=== PATIENT | female | born 1980 | race Caucasian/White ===

== ENCOUNTER 2020-04-17 16:08 | Emergency (ER) | payer BC ==
[2020-04-17 18:15] LABS: RED BLOOD COUNT 4.67 M/UL (4.00-5.10); WHITE BLOOD COUNT 9.6 K/UL (4.5-11.0)
[2020-04-17 18:35] LABS: BUN/CREATININE RATIO 9 (0-10)
[2020-04-17] MEDS ORDERED: FLOMAX 0.4 MG0.4 MG PO (19:31)
[2020-04-17] MEDS ORDERED: TORADOL 10 MG T10 MG PO (19:31)
[2020-04-17] MEDS ORDERED: ZOFRAN ODT 4 MG4 MG SL (19:31)
[2020-04-17] MEDS ORDERED: HYDROCODON-ACE1 EAC4 PO (19:31)
== END 2020-04-17 19:55 | disposition home or self-care (01) ==
LOC: ER1 16:08
PROVIDERS: Emergency Medicine
DX: N13.2 Hydronephrosis with renal and ureteral calculous obstruction (principal); Z88.2 Allergy status to sulfonamides; Z88.6 Allergy status to analgesic agent; Z87.442 Personal history of urinary calculi; Z90.89 Acquired absence of other organs
CPT/HCPCS: 80053; 81001; 85025; 87086; 96374; 96375; 99284; J2270; J2405

== ENCOUNTER 2020-08-12 23:19 | Emergency (ER) | payer BC, OTHER ==
[~2020-08-12 23:19] MED LIST: FLOMAX 0.4 MG0.4 MG PO; HYDROCODON-ACE1 EAC4 PO; TORADOL 10 MG T10 MG PO; ZOFRAN ODT 4 MG4 MG SL
[2020-08-13 00:51] LABS: BUN/CREATININE RATIO 16 (0-10)
[2020-08-13 01:24] LABS: HEMOGLOBIN 12.9 gm/dl (12.3-15.3); RED BLOOD COUNT 4.64 M/UL (4.00-5.10)
[2020-08-13] MEDS ORDERED: HYDROCODON-ACE1 EAC4 PO (01:36)
[2020-08-13] MEDS ORDERED: FLOMAX0.4 MG PO (01:36)
[2020-08-13] MEDS ORDERED: ZOFRAN ODT 4 MG4 MG SL (01:36)
[2020-08-13] MEDS ORDERED: IBUPROFEN600 MG PO (01:36)
== END 2020-08-13 01:51 | disposition home or self-care (01) ==
LOC: ER1 23:19
PROVIDERS: Emergency Medicine
DX: N20.0 Calculus of kidney (principal); Z90.49 Acquired absence of other specified parts of digestive tract
CPT/HCPCS: 80053; 81001; 83690; 84703; 85025; 96374; 96375; 99284; J1885; J2405

== ENCOUNTER → 2020-08-26 | Outpatient (CLI) | payer BC, OTHER ==
[~2020-08-26] MED LIST changes: +FLOMAX0.4 MG PO; +IBUPROFEN600 MG PO
== END ==
LOC: KOH-I 10:40
DX: M79.672 Pain in left foot (principal); S92.412A Displaced fracture of proximal phalanx of left great toe, initial encounter for closed fracture
CPT/HCPCS: 73630

== ENCOUNTER 2020-11-24 04:40 | Emergency (ER) | payer BC, OTHER ==
[~2020-11-24] VITALS: Ht 163.8 cm; Wt 73.0 kg
[2020-11-24 06:53] LABS: HEMOGLOBIN 12.6 gm/dl (12.3-15.3); RED BLOOD COUNT 4.52 M/UL (4.00-5.10); WHITE BLOOD COUNT 9.1 K/UL (4.5-11.0)
[2020-11-24] MEDS ORDERED: FLOMAX0.4 MG PO (08:31)
[2020-11-24] MEDS ORDERED: TORADOL 10 MG T10 MG PO (08:31)
[2020-11-24] MEDS ORDERED: ZOFRAN4 MG PO (08:31)
== END 2020-11-24 08:49 | disposition home or self-care (01) ==
LOC: ER1 04:40
PROVIDERS: Family Medicine
DX: N13.2 Hydronephrosis with renal and ureteral calculous obstruction (principal); Z88.2 Allergy status to sulfonamides; Z88.6 Allergy status to analgesic agent
CPT/HCPCS: 80053; 81001; 83690; 85025; 87086; 96374; 99284; J1885

== ENCOUNTER 2020-12-05 05:27 | Emergency (ER) | payer BC, OTHER ==
[~2020-12-05 05:27] MED LIST changes: +ZOFRAN4 MG PO
== END 2020-12-05 08:06 | disposition home or self-care (01) ==
LOC: ER1 05:27
DX: J02.9 Acute pharyngitis, unspecified (principal); H66.93 Otitis media, unspecified, bilateral; R60.0 Localized edema; Z88.2 Allergy status to sulfonamides; Z87.442 Personal history of urinary calculi; Z20.822 Contact with and (suspected) exposure to COVID-19
CPT/HCPCS: 87081; 87880; 99283; U0002

== ENCOUNTER → 2020-12-21 | Outpatient (CLI) | payer BC, OTHER ==
[2020-12-22 14:14] LABS: ANGIOTENSIN-CONVERTING ENZYME 54 U/L (14-82); LYME IGG/IGM AB <0.91 ISR (0.00-0.90)
[2020-12-22 16:14] LABS: T PALLIDUM AB (FTA-AB) Non Reactive (Non Reactive)
[2020-12-22 17:08] LABS: TREPONEMA PALLIDUM ANTIBODIES Non Reactive (Non Reactive)
[2020-12-27 22:10] LABS: QUANTIFERON MITOGEN VALUE >10.00 IU/mL (.); QUANTIFERON NIL VALUE 0.05 IU/mL (.); QUANTIFERON TB1 AG VALUE 0.04 IU/mL (.); QUANTIFERON TB2 AG VALUE 0.08 IU/mL (.); QUANTIFERON-TB GOLD PLUS Negative (Negative)
[2020-12-30 16:14] LABS: HLA B 27 DISEASE ASSOCIATION Positive (.)
== END ==
LOC: LAB 09:19
DX: H20.022 Recurrent acute iridocyclitis, left eye (principal); H20.012 Primary iridocyclitis, left eye; H20.12 Chronic iridocyclitis, left eye
CPT/HCPCS: 36415; 81374; 82164; 85652; 86038; 86618; 86780

== ENCOUNTER → 2021-02-08 | Outpatient (CLI) | payer BC, OTHER ==
[~2021-02-08] VITALS: Ht 162.6 cm; Wt 78.0 kg
== END ==
LOC: EROP 16:49
DX: U07.1 COVID-19 (principal)
CPT/HCPCS: 96365

== ENCOUNTER → 2021-03-15 | Outpatient (CLI) | payer BC, OTHER | LOC: KOH-I 09:03 | DX: S92.912D Unspecified fracture of left toe(s), subsequent encounter for fracture with routine healing (principal) | CPT/HCPCS: 73630 ==

== ENCOUNTER → 2021-03-25 | Outpatient (CLI) | payer BC, OTHER | LOC: KOH-I 09:10 | DX: S92.412K Displaced fracture of proximal phalanx of left great toe, subsequent encounter for fracture with nonunion (principal) | CPT/HCPCS: 73700 ==

== ENCOUNTER → 2021-04-07 | Outpatient (CLI) | payer BC, OTHER ==
[~2021-04-07] MED LIST changes: +PREDNISOLONE ACE5 ML EYELF
[2021-04-07 09:07] LABS: HEMOGLOBIN 12.8 gm/dl (12.3-15.3); RED BLOOD COUNT 4.66 M/UL (4.00-5.10); WHITE BLOOD COUNT 6.4 K/UL (4.5-11.0)
[2021-04-07 09:31] LABS: BUN/CREATININE RATIO 20 (0-10)
== END ==
LOC: OPSV2 08:00
PROVIDERS: Podiatrist Foot & Ankle Surgery
DX: Z01.812 Encounter for preprocedural laboratory examination (principal); M19.072 Primary osteoarthritis, left ankle and foot; M20.5X2 Other deformities of toe(s) (acquired), left foot; Z88.6 Allergy status to analgesic agent; Z88.2 Allergy status to sulfonamides
CPT/HCPCS: 80048; 85027

== ENCOUNTER → 2021-04-21 | Outpatient (CLI) | payer BC, OTHER | LOC: KOH-I 14:40 | DX: S92.402A Displaced unspecified fracture of left great toe, initial encounter for closed fracture (principal) | CPT/HCPCS: 73630 ==

== ENCOUNTER → 2021-06-14 | Outpatient (CLI) | payer BC, OTHER | LOC: KOH-I 08:56 | DX: M79.672 Pain in left foot (principal); Z98.890 Other specified postprocedural states | CPT/HCPCS: 73630 ==

== ENCOUNTER → 2021-07-05 | Outpatient (CLI) | payer BC, OTHER | LOC: KOH-I 08:58 | DX: M79.672 Pain in left foot (principal); M77.32 Calcaneal spur, left foot | CPT/HCPCS: 73630 ==

== ENCOUNTER → 2021-07-25 | Outpatient (CLI) | payer BC, OTHER | LOC: KOH-I 08:39 | DX: S92.402D Displaced unspecified fracture of left great toe, subsequent encounter for fracture with routine healing (principal) | CPT/HCPCS: 73630 ==

== ENCOUNTER 2021-09-09 12:18 | Emergency (ER) | payer BC, OTHER ==
[2021-09-09 14:43] LABS: HEMOGLOBIN 12.5 gm/dl (12.3-15.3); RED BLOOD COUNT 4.51 M/UL (4.00-5.10); WHITE BLOOD COUNT 12.9 K/UL (4.5-11.0)
[2021-09-09 15:14] LABS: BUN/CREATININE RATIO 18 (0-10)
== END 2021-09-09 17:47 | disposition home or self-care (01) ==
LOC: ER1 12:18
PROVIDERS: Emergency Medicine
DX: R10.9 Unspecified abdominal pain (principal); Z87.442 Personal history of urinary calculi
CPT/HCPCS: 80053; 81001; 84703; 85025; 87086; 99284; J2270; J2405